=== PATIENT | male | born 1970 | race Caucasian/White ===

== ENCOUNTER 2018-03-29 19:19 | Emergency (ER) | payer OTHER ==
[~2018-03-29] VITALS: Ht 167.6 cm; Wt 77.1 kg
--- NOTE | 2018-03-29 20:23 | ED EENT ---
History of Present Illness General Chief Complaint: Head/Cervical Problems Stated Complaint: SWELLING R SIDE NECK Nursing Triage Note: c/o R sided neck swelling with sore throat since thursday Source: patient Exam Limitations: no limitations History of Present Illness Date Seen by Provider: Mar 29, 2018 Time Seen by Provider: 20:21 Initial Comments to ER with significant swelling to the right side of the neck just inferior to the angle of the mandible. This began 2 days ago with a sore throat, he awakened this morning with significant swelling to the right side of his neck. He reports that it is painful to swallow but he is able to swallow. He denies fevers or chills. Timing/Duration: abrupt Severity: moderate Location: throat Associated Symptoms: sore throat Allergies and Home Medications Allergies Coded Allergies: Penicillins (Verified Allergy, Unknown, 03/29/18) Home Medications Clindamycin HCl 300 Mg Capsule, 300 MG PO TID Prescribed by: AFTAB LANDAVERDE on 03/29/182132 Prednisone 20 Mg Tab, 40 MG PO DAILY Prescribed by: AFTAB LANDAVERDE on 03/29/182132 Patient Home Medication List Home Medication List Reviewed: Yes Review of Systems Constitutional: see HPI; No chills, No fever Eyes: No Symptoms Reported Ears: No Symptoms Reported Nose: no symptoms reported Mouth: no symptoms reported Throat: see HPI, pain, swelling Respiratory: no symptoms reported Cardiovascular: no symptoms reported Musculoskeletal: no symptoms reported Skin: no symptoms reported Past Vpchjbq-Sxvnfj-Wxvfsw Hx Patient Social History Alcohol Use: Denies Use Recreational Drug Use: No Smoking Status: Former Smoker Type Used: Cigarettes Recent Foreign Travel: No Contact w/Someone Who Travel: No Recent Infectious Disease Expo: No Past Medical History Surgeries: No Respiratory: No Cardiac: No Neurological: No Genitourinary: No Gastrointestinal: No Musculoskeletal: No Endocrine: No HEENT: No Cancer: No Psychosocial: No Integumentary: No Blood Disorders: No Physical Exam Vital Signs Vital Signs - First Documented 03/29/18 19:33 Temp 98.7 Pulse 86 Resp 18 B/P (MAP) 142/96 (111) Pulse Ox 100 General Appearance: WD/WN, no apparent distress Eyes: bilateral eye normal inspection, bilateral eye PERRL, bilateral eye EOMI Ears: bilateral ear auricle normal, bilateral ear canal normal, bilateral ear TM normal Mouth/Throat: pharynx swelling, tonsillar exudate, tonsillar swelling; No trismus, No uvula swelling Neck: non-tender, full range of motion, other (golf ball sized area of swelling to the right neck just inferior to the angle of the mandible. Very tender. The overlying skin is normal in appearance. Feels very firm and not fluctuant.) Respiratory: normal breath sounds, no respiratory distress Gastrointestinal: normal bowel sounds, non tender Neurologic/Psychiatric: alert, normal mood/affect, oriented x 3 Skin: normal color, warm/dry Progress/Results/Core Measures Results/Orders Lab Results Laboratory Tests Test 03/29/18 20:15 03/29/18 20:30 Range/Units Group A Streptococcus Screen NEGATIVE NEGATIVE White Blood Count 11.7 H 4.3-11.0 10^3/uL Red Blood Count 4.71 4.35-5.85 10^6/uL Hemoglobin 15.0 13.3-17.7 G/DL Hematocrit 42 40-54 % Mean Corpuscular Volume 90 80-99 FL Mean Corpuscular Hemoglobin 32 25-34 PG Mean Corpuscular Hemoglobin Concent 36 32-36 G/DL Red Cell Distribution Width 13.1 10.0-14.5 % Platelet Count 241 130-400 10^3/uL Mean Platelet Volume 10.9 H 7.4-10.4 FL Neutrophils (%) (Auto) 72 42-75 % Lymphocytes (%) (Auto) 15 12-44 % Monocytes (%) (Auto) 12 0-12 % Eosinophils (%) (Auto) 1 0-10 % Basophils (%) (Auto) 0 0-10 % Neutrophils # (Auto) 8.4 H 1.8-7.8 X 10^3 Lymphocytes # (Auto) 1.8 1.0-4.0 X 10^3 Monocytes # (Auto) 1.4 H 0.0-1.0 X 10^3 Eosinophils # (Auto) 0.1 0.0-0.3 10^3/uL Basophils # (Auto) 0.0 0.0-0.1 10^3/uL Sodium Level 141 135-145 MMOL/L Potassium Level 4.0 3.6-5.0 MMOL/L Chloride Level 107 98-107 MMOL/L Carbon Dioxide Level 21 21-32 MMOL/L Anion Gap 13 5-14 MMOL/L Blood Urea Nitrogen 11 7-18 MG/DL Creatinine 1.11 0.60-1.30 MG/DL Estimat Glomerular Filtration Rate > 60 BUN/Creatinine Ratio 10 Glucose Level 97 70-105 MG/DL Calcium Level 9.8 8.5-10.1 MG/DL Total Bilirubin 0.6 0.1-1.0 MG/DL Aspartate Amino Transf (AST/SGOT) 17 5-34 U/L Alanine Aminotransferase (ALT/SGPT) 17 0-55 U/L Alkaline Phosphatase 45 40-136 U/L Total Protein 8.0 6.4-8.2 GM/DL Albumin 4.8 H 3.2-4.5 GM/DL Monoscreen NEGATIVE NEGATIVE Micro Results Microbiology 03/29/18 Throat Culture - Preliminary, Resulted No Beta Strep isolated My Orders Orders - AFTAB LANDAVERDE APRN Iv Heplock-Insert (Order) (03/29/18 20:19) Cbc With Automated Diff (03/29/18 20:19) Comprehensive Metabolic Panel (03/29/18 20:19) Monotest (03/29/18 20:19) Rapid Strep A Screen (03/29/18 20:19) Ct Neck (Soft Tissue) W (03/29/18 20:19) Dexamethasone Injection (Decadron Inject (03/29/18 20:30) Clindamycin 900 Mg/50 Ml Ivpb (Cleocin P (03/29/18 21:15) Rx-Clindamycin Capsule (Rx-Cleocin Capsu (03/29/18 21:34) Medications Given in ED Vital Signs/I&O Blood Pressure Mean: 111 Diagnostic Imaging Diagonstic Imaging: CT Comments NAME: COMPA ESCOBAR [facility] REC#: [id number] PT STATUS: REG ER : 1970 PHYSICIAN: AFTAB LANDAVERDE APRN ADMIT DATE: 03/29/18/ER Draft Date of Exam:03/29/18 CT NECK (SOFT TISSUE) W PROCEDURE: CT neck soft tissue with contrast. TECHNIQUE: Multiple contiguous axial images were obtained through the neck after the administration of contrast. INDICATION: Right-sided neck mass and difficulty swallowing. COMPARISON: None available. FINDINGS: In the right neck posterior to the level of the right mandibular angle, there is a ovoid low-attenuation cystic mass measuring 2.9 x 1.9 x 2.0 cm. This has a thin rim of peripheral enhancement and is located along the anterior margin of the sternocleidomastoid muscle. There are a few borderline enlarged right-sided level II and III cervical lymph nodes. However, none of these meet criteria for pathologic enlargement. The salivary glands are symmetric. No definitive mucosal based mass in the nasopharynx, oropharynx or hypopharynx. Mineralizations within the tonsils are likely from chronic infection. There is a subcentimeter hypodense nodule in the lower pole of the left thyroid. Lung apices show paraseptal emphysema. IMPRESSION: 1. Cystic mass posterior to the angle of the right mandible is indeterminate and could represent infected brachial cleft cyst, cystic/necrotic metastatic lymph node or less likely an abscess. Recommend followup CT in 2-3 weeks after appropriate medical management for potential infection to assess if this has improved. If this persists, biopsy may be warranted to assess for malignancy. Dictated on workstation # [id number] Dict: 03/29/182058 Trans: 03/29/182110 [facility] [id number] Interpreted by: PAULETTE ROD MD Electronically signed by: Departure Communication (Admissions) 124-I've given the patient 10 mg of Decadron and 900 mg clindamycin. We'll continue this in the outpatient setting. I spoke with Dr. Baca. I'll have the patient call his office tomorrow morning to schedule an appointment time. Impression Primary Impression: Branchial cleft cyst Additional Impression: Pharyngitis Disposition: 01 HOME, SELF-CARE Condition: Stable Departure-Patient Inst. Decision time for Depature: 21:25 Referrals: FIDEL BACA MD NO,LOCAL PHYSICIAN (PCP) Primary Care Physician Patient Instructions: Sore Throat in Adults Add. Discharge Instructions: 1. Call Dr. Baca's office tomorrow morning at 8 AM. Tell them you were in the ER tonight and we spoke with Dr. Baca and he would like to see you sooner as they can schedule your. Take the antibiotics as directed in addition to the steroids. Return to ER for any difficulty breathing, significantly worsening swelling or other concerns. All discharge instructions reviewed with patient and/or family. Voiced understanding. Scripts Prednisone (Prednisone) 20 Mg Tab 40 MG PO DAILY, #6 TAB Prov: AFTAB LANDAVERDE [employer]IST 03/29/18 Clindamycin HCl (Clindamycin HCl) 300 Mg Capsule 300 MG PO TID, #30 CAP Prov: AFTAB LANDAVERDE APRN 03/29/18 Work/School Note: Work Release Form Date Seen in the Emergency Department: Mar 29, 2018 Return to Work: Mar 31, 2018 Copy Copies To 1: FIDEL BACA MD, PETER J APRN Mar 29, 2018 20:23
[2018-03-29] MEDS ORDERED: DEXAMETHASONE 10 MG/ML (DECADRON) 1 ML VIAL IV ONE (20:30)
[2018-03-29] MEDS ORDERED: NS 100 ML (IVPB) BAG IV ONE (20:30)
[2018-03-29] MEDS ORDERED: IOHEXOL 350 MG/ML 100 ML (OMNIPAQUE 350) VIAL IV ONE (20:30)
[2018-03-29 20:43] LABS: BASOPHILS % (AUTO) 0 % (0-10); EOSINOPHILS # (AUTO) 0.1 10^3/uL (0.0-0.3); EOSINOPHILS % (AUTO) 1 % (0-10); HEMATOCRIT 42 % (40-54); LYMPHOCYTES # (AUTO) 1.8 X 10^3 (1.0-4.0); LYMPHOCYTES % (AUTO) 15 % (12-44); MEAN CORPUSCULAR HEMOGLOBIN 32 PG (25-34); MEAN CORPUSCULAR HGB CONC 36 G/DL (32-36); MEAN CORPUSCULAR VOLUME 90 FL (80-99); MEAN PLATELET VOLUME 10.9 FL (7.4-10.4); MONOCYTES # (AUTO) 1.4 X 10^3 (0.0-1.0); MONOCYTES % (AUTO) 12 % (0-12); NEUTROPHILS # (AUTO) 8.4 X 10^3 (1.8-7.8); NEUTROPHILS % (AUTO) 72 % (42-75); PLATELET COUNT 241 10^3/uL (130-400); RED BLOOD COUNT 4.71 10^6/uL (4.35-5.85); RED CELL DISTRIBUTION WIDTH 13.1 % (10.0-14.5); WHITE BLOOD COUNT 11.7 10^3/uL (4.3-11.0)
[2018-03-29 21:03] LABS: ALANINE AMINOTRANSFERASE 17 U/L (0-55); ALBUMIN 4.8 GM/DL (3.2-4.5); ALKALINE PHOSPHATASE 45 U/L (40-136); BILIRUBIN,TOTAL 0.6 MG/DL (0.1-1.0); BUN/CREATININE RATIO 10; CALCIUM 9.8 MG/DL (8.5-10.1); CARBON DIOXIDE 21 MMOL/L (21-32); CHLORIDE 107 MMOL/L (98-107); CREATININE SERUM 1.11 MG/DL (0.60-1.30); GFR ESTIMATED > 60; GLUCOSE 97 MG/DL (70-105); SODIUM 141 MMOL/L (135-145)
--- NOTE | 2018-03-29 21:11 | Diagnostic Imaging Report ---
PROCEDURE: CT neck soft tissue with contrast. TECHNIQUE: Multiple contiguous axial images were obtained through the neck after the administration of contrast. INDICATION: Right-sided neck mass and difficulty swallowing. COMPARISON: None available. FINDINGS: In the right neck posterior to the level of the right mandibular angle, there is a ovoid low-attenuation cystic mass measuring 2.9 x 1.9 x 2.0 cm. This has a thin rim of peripheral enhancement and is located along the anterior margin of the sternocleidomastoid muscle. There are a few borderline enlarged right-sided level II and III cervical lymph nodes. However, none of these meet criteria for pathologic enlargement. The salivary glands are symmetric. No definitive mucosal based mass in the nasopharynx, oropharynx or hypopharynx. Mineralizations within the tonsils are likely from chronic infection. There is a subcentimeter hypodense nodule in the lower pole of the left thyroid. Lung apices show paraseptal emphysema. IMPRESSION: 1. Cystic mass posterior to the angle of the right mandible is indeterminate and could represent infected brachial cleft cyst, cystic/necrotic metastatic lymph node or less likely an abscess. Recommend followup CT in 2-3 weeks after appropriate medical management for potential infection to assess if this has improved. If this persists, biopsy may be warranted to assess for malignancy. Dictated by: Dictated on workstation # [id number]
[2018-03-29] MEDS ORDERED: CLINDAMYCIN 900 MG/50 ML IVPB 50 ML IV ONE (21:15)
[2018-03-29] MEDS ORDERED: PRD20T PO (21:33)
[2018-03-29] MEDS ORDERED: CLIN300C11 PO (21:33)
[2018-03-29] MEDS ORDERED: RX-CLINDAMYCIN 150 MG (CLEOCIN) CAP PPK#4 PO STA (21:34)
[2018-03-29 21:52] VITALS: BP 142/96
== END 2018-03-29 21:52 | disposition home or self-care (01) ==
LOC: ER 19:23
DX: J02.9 Acute pharyngitis, unspecified (principal); Q18.0 Sinus, fistula and cyst of branchial cleft; Z87.891 Personal history of nicotine dependence; Z88.0 Allergy status to penicillin
CPT/HCPCS: 36415; 70491; 80053; 85025; 86308; 87430; 96365; 96375

== ENCOUNTER 2018-05-10 05:40 | Outpatient (CLI) | payer OTHER ==
[~2018-05-10] VITALS: Ht 167.6 cm; Wt 74.0 kg
[~2018-05-10 05:40] MED LIST: CLIN300C11 PO; PRD20T PO
[2018-05-10] MEDS ORDERED: ACET325T49 PO (10:43)
[2018-05-10] MEDS ORDERED: HYDR-3812 PO (10:43)
[2018-05-10 10:44] VITALS: BP 137/104
[2018-05-10 11:25] LABS: BASOPHILS % (AUTO) 0 % (0-10); EOSINOPHILS % (AUTO) 0 % (0-10); HEMATOCRIT 42 % (40-54); HEMOGLOBIN 14.4 G/DL (13.3-17.7); LYMPHOCYTES # (AUTO) 1.2 X 10^3 (1.0-4.0); LYMPHOCYTES % (AUTO) 11 % (12-44); MEAN CORPUSCULAR HEMOGLOBIN 31 PG (25-34); MEAN CORPUSCULAR HGB CONC 34 G/DL (32-36); MEAN CORPUSCULAR VOLUME 89 FL (80-99); MEAN PLATELET VOLUME 10.9 FL (7.4-10.4); MONOCYTES # (AUTO) 0.6 X 10^3 (0.0-1.0); MONOCYTES % (AUTO) 6 % (0-12); NEUTROPHILS % (AUTO) 83 % (42-75); PLATELET COUNT 324 10^3/uL (130-400); RED BLOOD COUNT 4.71 10^6/uL (4.35-5.85); RED CELL DISTRIBUTION WIDTH 13.6 % (10.0-14.5); WHITE BLOOD COUNT 10.8 10^3/uL (4.3-11.0)
[2018-05-10 11:40] LABS: BUN/CREATININE RATIO 15; CALCIUM 9.4 MG/DL (8.5-10.1); CARBON DIOXIDE 22 MMOL/L (21-32); CHLORIDE 108 MMOL/L (98-107); CREATININE SERUM 0.88 MG/DL (0.60-1.30); GFR ESTIMATED > 60; GLUCOSE 103 MG/DL (70-105); POTASSIUM 3.6 MMOL/L (3.6-5.0); SODIUM 139 MMOL/L (135-145)
== END 2018-05-10 12:08 | disposition home or self-care (01) ==
LOC: PREOP 05:40
PROVIDERS: ATTEND Otolaryngology Otolaryngology/Facial Plastic Surgery
DX: Z01.810 Encounter for preprocedural cardiovascular examination (principal); Z01.812 Encounter for preprocedural laboratory examination; Z11.2 Encounter for screening for other bacterial diseases; R22.1 Localized swelling, mass and lump, neck
CPT/HCPCS: 36415; 80048; 85025; 87081; 93005